=== PATIENT | male | born 1950 | race Caucasian/White ===

== ENCOUNTER → 2017-06-04 | Outpatient (CLI) | payer OTHER, BC ==
[~2017-06-04] MED LIST: IBUPROFEN 600600 M1 PO; PERCOCET 5-3251 EACH PO; TAMSULOSIN HCL0.4 MG PO; ZOFRAN ODT4 MG PO
--- NOTE | ~2017-06-04 | 2DMMODE ---
[facility] [address] [place] [address] 2 D/M-MODE ECHOCARDIOGRAM Name: KIERSTENMILIND MELARA Room #: REG [facility]#: [id number] Admission: 06/04/17 Attend Phys: Ziggy Brown MD Discharge: Date of : 50 Date of Service: 06/04/17 1437 Report #: [id number] THIS REPORT FOR: //name// APPROVED REPORT Study performed: 06/04/2017 13:23:52 EXAM: Comprehensive 2D, Doppler, and color-flow Echocardiogram Patient Location: Out-Patient Room #: Echo lab Status: routine BSA: 1.83 HR: 76 bpm BP: 145/80 mmHg Other Information Study Quality: Good Indications Chest tightness 2D Dimensions RVDd: 30.27 mm LVEF(%): 55.04 (>50%) IVSd: 8.60 (7-11mm) LVOT Diam: 19.00 (18-24mm) LVDd: 45.72 mm PWd: 8.60 (7-11mm) Ascending Ao: 29.19 (22-36mm) LVDs: 32.69 (25-40mm) Aortic Root: 31.67 mm IVC: 15.00 mm Caro's LVEF: 55.04 % Volumes Left Atrial Volume (Systole) Single Plane 4CH: 32.59 mL Single Plane 2CH: 41.75 mL LA ESV Index: 24.00 mL/m2 Aortic Valve AoV Peak Brad.: 1.09 m/s AO Peak Gr.: 4.74 mmHg LVOT Max P.51 mmHg LVOT Max V: 1.06 m/s DIEGO Vmax: 2.76 cm2 Mitral Valve E/A Ratio: 0.9 MV Decel. Time: 324.93 ms MV E Max Brad.: 0.44 m/s [facility] [place] [address] 2 D/M-MODE ECHOCARDIOGRAM Name: MILIND BURCH Room #: REG [facility].#: [id number] Admission: 06/04/17 Attend Phys: Ziggy Brown MD Discharge: Date of : 50 Date of Service: 06/04/17 1437 Report #: [id number] MV A Brad.: 0.51 m/s MV PHT: 94.23 ms IVRT: 124.57 ms Pulmonary Valve PV Peak Brad.: 0.82 m/s PV Peak Gr.: 2.69 mmHg [place] End Vmax: 1.25 m/s Pulmonary Vein P Vein S: 0.39 m/s P Vein A: 0.25 m/s P Vein D: 0.32 m/s P Vein A Dur.: 120.0 msec P Vein S/D Ratio: 1.22 Tricuspid Valve TR Peak Brad.: 2.52 m/s TR Peak Gr.: 25.43 mmHg PA Pressure: 30.00 mmHg Left Ventricle The left ventricle is normal size. There is normal left ventricular wall thickness. The left ventricular systolic function is normal. The left ventricular ejection fraction is within the normal range. LVEF is 55-60%. Grade I - abnormal relaxation pattern. Right Ventricle The right ventricle is normal size. The right ventricular systolic function is normal. Atria The left atrium size is normal. The right atrium size is normal. Aortic Valve The aortic valve is normal in structure. No aortic regurgitation is present. There is no aortic valvular stenosis. Mitral Valve The mitral valve is normal in structure. Mild mitral regurgitation. No evidence of mitral valve stenosis. Tricuspid Valve The tricuspid valve is normal in structure. There is mild tricuspid regurgitation. Estimated PAP 30 mmHg. There is no pulmonary hypertension. Pulmonic Valve [facility] [address] [place] [address] 2 D/M-MODE ECHOCARDIOGRAM Name: MILIND BURCH Room #: REG CL [facility]#: [id number] Admission: 06/04/17 Attend Phys: Ziggy Brown MD Discharge: Date of : 50 Date of Service: 06/04/17 1437 Report #: [id number] The pulmonary valve is normal in structure. Trace pulmonic regurgitation. Great Vessels The aortic root is normal in size. IVC is normal in size and collapses >50% with inspiration. Pericardium There is no pericardial effusion. <Conclusion> The left ventricle is normal size. There is normal left ventricular wall thickness. The left ventricular systolic function is normal. Grade I - abnormal relaxation pattern. The right ventricle is normal size. The left atrium size is normal. The aortic valve is normal in structure. Mild mitral regurgitation. There is mild tricuspid regurgitation. Estimated PAP 30 mmHg. <ELECTRONICALLY SIGNED> By: Ziggy Brown MD 06/04/17 1437 1437 1437 Ziggy Brown MD /INF
--- NOTE | ~2017-06-04 | EXE ---
[facility] [place] [address] [place] [address] STRESS ECHOCARDIOGRAM Name: KIERSTENMILIND MELARA Room #: REG [facility]#: [id number] Admission: 06/04/17 Attend Phys: Ziggy Brown MD Discharge: Date of : 50 Date of Service: 06/04/17 1453 Report #: [id number] THIS REPORT FOR: //name// APPROVED REPORT Exam: Stress Echocardiogram Indication: Chest tightness Patient Location: Out-Patient Stress Nurse: Margie Anderson RN Room #: Echo lab Status: routine Ht: 5 ft 7 in HR: 73 bpm BP: 145/80 mmHg Medical History Allergies: No known drug allergies Procedure The patient underwent an Exercise Stress Test using the Serjio Protocol. Blood pressure, heart rate, and EKG were monitored. An Echocardiogram was performed by machine operator slitter technician in four stages in quad fashion. At peak stress, four selected images were obtained and placed side by side with resting images for comparison. Stress Test Details Stress Test: Exercise stress testing was performed using a Serjio protocol. HR Resting HR: 73 bpm Max Heart Rate (APMHR): 154 bpm Max HR Achieved: 144 bpm Target HR (85% APMHR): 130 bpm % of APMHR: 93 HR response to stress: Normal HR response to stress BP Resting BP: 145/80 mmHg Max BP: 148/84 mmHg Recovery BP: 116/80 mmHg ECG Resting ECG: Sinus Rhythm Stress ECG: Sinus Rhythm, NSSTT changes ST Change: Non-ischemic Maximum ST Deviation: 0.5 [facility] [address] [place] [address] STRESS ECHOCARDIOGRAM Name: KIERSTENMILIND MELARA Room #: REG CL [facility].#: [id number] Admission: 06/04/17 Attend Phys: Ziggy Brown MD Discharge: Date of : 50 Date of Service: 06/04/17 1453 Report #: [id number] Clinical Reason for Termination: Maximal effort Exercise duration: 9 min sec Highest Stage Achieved: Stage 3: 3.4 mph at 14% grade. Exercise capacity: 10.1 METs Overall Exercise Capacity for Age: Excellent Pre-Stress Echo The resting Echocardiogram showed normal left ventricular contractility with an estimated Ejection Fraction of about >55%. Normal wall motion in all segments on baseline images. Post-Stress Echo The stress Echocardiogram showed normal left ventricular contractility with an estimated Ejection Fraction of about 65-70%. Normal augmentation of wall motion in all segments on post stress images. Clinical No clinical or ECG evidence for ischemia. Conclusion Clinical Response: Non-ischemic Exercise Capacity: Average Stress ECG Response: Non-ischemic Stress Echo Images: Non-ischemic No clinical, EKG or echocardiographic evidence for ischemia. No prior study available for comparison. Other Information Study Quality: Good <Conclusion> No clinical, EKG or echocardiographic evidence for ischemia. <ELECTRONICALLY SIGNED> By: Ziggy Brown MD 06/04/17 1453 1453 1453 Ziggy Brown MD /INF
== END ==
LOC: CV 12:48
DX: I08.1 Rheumatic disorders of both mitral and tricuspid valves (principal)